=== PATIENT | female | born 1970 | race Caucasian/White ===

== ENCOUNTER → 2017-06-07 | Day surgery (SDC) | payer OTHER ==
[2017-06-05 16:23] LABS: BASOPHILS % 0.4 % (0.0-1.0); EOSINOPHILS # (AUTO) 0.1 (0.0-0.4); EOSINOPHILS % 1.8 % (0.0-6.0); HEMATOCRIT 41.9 % (34.2-44.1); HEMOGLOBIN 14.3 g/dL (12.0-16.0); LYMPHOCYTES # (AUTO) 2.2 (1.0-3.2); LYMPHOCYTES % 28.8 % (18.0-39.1); MEAN CORPUSCULAR HEMOGLOBIN 30.2 pg (28-32); MEAN CORPUSCULAR HGB CONC 34.1 g/dL (31-35); MEAN CORPUSCULAR VOLUME 88.4 fL (81-99); MONOCYTES # (AUTO) 0.5 (0.2-0.8); MONOCYTES % 6.6 % (4.4-11.3); NEUTROPHILS # (AUTO) 4.8 (2.1-6.9); NEUTROPHILS % 62.3 % (38.7-80.0); PLATELET COUNT 308 x10e3/uL (140-360); RED BLOOD COUNT 4.74 x10e6/uL (3.6-5.1); RED CELL DISTRIBUTION WIDTH 12.6 % (11.7-14.4)
[2017-06-05 16:40] LABS: ANION GAP 11.4 mmol/L (8-16); BLOOD UREA NITROGEN 13 mg/dL (7-26); BUN/CREATININE RATIO 17 (6-25); CARBON DIOXIDE 29 mmol/L (22-29); CHLORIDE 107 mmol/L (98-107); CREATININE, SERUM 0.75 mg/dL (0.57-1.11); EST GLOMERULAR FILTRATION RATE > 60 ML/MIN (60-); GLUCOSE 103 mg/dL (74-118); POTASSIUM 4.4 mmol/L (3.5-5.1); SODIUM 143 mmol/L (136-145)
[~2017-06-07] MED LIST: ACETAMINOPHEN 1000 MG/100 ML IV ONE; BUPIVACAINE HCL 0.5% INJ 30 ML VIAL INJ ONE; CEFAZOLIN SOD 1 GM VIAL ONE; DEXAMETHASONE SOD PHOS INJ 4 MG/ML VIAL ONE; FENTANYL CITRATE/PF 100MCG/2 ML INJ ONE; HYDROMORPHONE 1MG/1ML INJ ONE; LIDOCAINE HCL 2% LOCAL INJ 5 ML SDV VIAL INJ ONE; NEOSTIGMINE 1 MG/ML 10ML VIAL ONE; ONDANSETRON HCL INJ 2 MG/ML VIAL ONE; PROPOFOL IV EMULSION 10 MG/ML 20 ML VIAL ONE; SEVOFLURANE INHAL SOLN 250 ML PEN BTL ONE
--- NOTE | 2017-06-07 14:20 | Operative Report ---
DATE OF PROCEDURE: June 07, 2017 PREOPERATIVE DIAGNOSES 1. Fractured right ankle distal fibula. 2. Ruptured anterior talofibular ligament, both on the right foot. ANESTHESIA: General endotracheal. HEMOSTASIS: Right thigh tourniquet at 350 mmHg. PROCEDURES 1. Removal of fracture fragment from the right ankle, multiple. These were sent to pathology along with ruptured ligament edges. 2. Brostrom repair, lateral ankle ligaments with Arthrex absorbable anchor. PROCEDURE IN DETAIL: The patient was taken to the operating room in a mildly state and placed upon the operating table in the supine position. Following induction of general anesthetic, the right lower extremity was elevated to 60 degrees to exsanguinate before inflating the pneumatic thigh tourniquet to 350 mmHg for hemostasis. The right lower extremity was placed on the operating table prior to performing the following procedure: Procedure #1: Brostrom repair and excision of fracture fragment of the right foot. A transverse incision was made at the distal fibula in the area of the fracture fragments, which were noted on radiograph. The area was then opened, and a significant amount of inflammatory tissue was noted around this new fracture. The fracture fragments were identified and resected from the wound; one anterior and the posterolateral aspect. These were both removed and the area irrigated with copious amounts of sterile saline solution. The distal fibula at the ATF was noted to be intact. The ligament itself was ruptured. The area after irrigation and closure with 3-0 Vicryl to form an adequate pocket for fixation was then treated with absorbable anchor from Arthrex. The 3.7 tap was used under fluoroscopy for appropriate positioning and inserted into the distal fibula. The anterior talofibular ligament was then repaired utilizing #2 FiberWire attached to the anchor. This appropriate closure was then performed, and the area was irrigated with copious amounts of sterile saline solution. The closure was 3-0 Vicryl and skin closure 4-0 nylon. The areas of surgery were all blocked with 0.5 Marcaine and Decadron [place]. Human tissue allograft was applied in the area of the grafting and also fractured fibula. The release of the pneumatic thigh tourniquet showed a normal hyperemic flush to all digits of the right foot. Appropriate mildly compressive dressings were applied after postop block of 0.5 Marcaine. A posterior splint was applied. The patient left the operating room with vital signs stable and in apparent satisfactory condition having tolerated both anesthetic and procedure very well. Job#: [id number] BRETT
== END | disposition home or self-care (01) ==
LOC: OR 07:59
PROVIDERS: ATTEND Podiatrist Foot Surgery
DX: S82.831A Other fracture of upper and lower end of right fibula, initial encounter for closed fracture (principal); S93.491A Sprain of other ligament of right ankle, initial encounter; K44.9 Diaphragmatic hernia without obstruction or gangrene; X58.XXXA Exposure to other specified factors, initial encounter; Z01.812 Encounter for preprocedural laboratory examination
CPT/HCPCS: 27696; 36415; 76000; 80048; 85025; 88305; 88311; J0690; J1100; J1170; J2001; J2405; J2710; Q4100